=== PATIENT | male | born 1970 | race Caucasian/White ===

== ENCOUNTER 2023-12-22 17:20 | Inpatient (IN) | payer OTHER ==
[~2023-12-22] VITALS: Ht 170.2 cm; Wt 89.9 kg
[2023-12-22] VITALS (16 sets, daily range): BP systolic 118–154; BP diastolic 90–98
[2023-12-22] MEDS ORDERED: Aspirin 325 MG Tab PO ONE (17:35)
[2023-12-22] MEDS ORDERED: Heparin Sodium 5000 Units/ML 1ML MDV IV ONE (17:40)
[2023-12-22 17:41] LABS: BASOPHILS ABSOLUTE AUTO 0.04 K/mm3 (0.00-0.23); BASOPHILS PERCENT AUTO 0 % (0-2); EOSINOPHILS ABSOLUTE AUTO 0.14 K/mm3 (0.00-0.68); EOSINOPHILS PERCENT AUTO 2 % (0-6); Hematocrit 48.3 % (37.0-53.0); Hemoglobin 16.4 g/dL (13.5-17.5); IMMATURE GRAN ABSOLUTE AUTO 0.02 K/mm3 (0.00-0.10); IMMATURE GRAN PERCENT AUTO 0 % (0-1); LYMPHOCYTES ABSOLUTE AUTO 3.09 K/mm3 (0.84-5.20); LYMPHOCYTES PERCENT AUTO 33 % (21-46); MONOCYTES ABSOLUTE AUTO 0.67 K/mm3 (0.16-1.47); MONOCYTES PERCENT AUTO 7 % (4-13); Mean Corpuscular HGB 31.6 pg (26.0-34.0); Mean Corpuscular Volume 93 fL (80-100); Mean Platelet Volume 9.4 fL (9.1-12.4); NEUTROPHILS ABSOLUTE AUTO 5.54 K/mm3 (1.96-9.15); NEUTROPHILS PERCENT AUTO 58 % (41-73); Platelet Count 192 K/mm3 (150-400); RDW Coefficient Variation 13.3 % (11.7-14.2); RDW Standard Deviation 45.4 fL (35.1-46.3); Red Blood Cell Count 5.19 M/mm3 (4.30-5.90)
[2023-12-22] MEDS ORDERED: Ticagrelor 90 MG TABLET PO ONE ×2 (17:50→19:58)
[2023-12-22] MEDS ORDERED: Verapamil HCL 2.5 MG/ML 2ML Injection ONE (17:58)
[2023-12-22] MEDS ORDERED: NS 250 ML IV ONE (17:58)
[2023-12-22] MEDS ORDERED: Heparin Sodium 1000 Units/ML 10ML MDV ONE ×2 (17:58→18:01)
[2023-12-22] MEDS ORDERED: Nitroglycerin 2 MG/20 ML BTL ONE (17:58)
[2023-12-22] MEDS ORDERED: NS 1,000 ML IV ONE ×2 (17:58→18:01)
[2023-12-22 18:01] LABS: Magnesium, Blood 2.2 mg/dL (1.6-2.4)
[2023-12-22] MEDS ORDERED: FentaNYL Citrate 50 MCG/ML 2 ML Injection ONE (18:01)
[2023-12-22] MEDS ORDERED: Midazolam HCl 1MG / ML 2ML Vial ONE (18:01)
[2023-12-22 18:02] LABS: Albumin/Globulin Ratio 1.1 (0.8-1.8); Bilirubin, Total 0.6 mg/dL (0.1-1.0); Bun/Creatinine Ratio 15.2 (12.0-20.0); Calcium, Blood 8.7 mg/dL (8.5-10.1); Creatinine, Blood 0.72 mg/dL (0.60-1.20); Globulin, Blood 3.7 g/dL (2.2-4.0); Total Protein, Blood 7.7 g/dL (6.4-8.2)
[2023-12-22 18:05] LABS: Creatinine (POC) 0.8 mg/dL (0.8-1.3)
[2023-12-22] MEDS ORDERED: Acetaminophen 325 MG TABLET PO PRN (18:10)
[2023-12-22] MEDS ORDERED: Magnesium Hydroxide Conc 10 ML UDC PO PRN (18:10)
[2023-12-22] MEDS ORDERED: Tirofiban HCL Monohydrate 3.75 MG/15 ML Vial ONE (18:31)
--- NOTE | 2023-12-22 19:42 | NUR ---
ADMIT PATIENT ADMITTED FROM [facility] AFTER STENTS PLACED TO MID RCA AND MID CIRC. PATIENT A&O X4 AT BEDSIDE. TR BAND ON RIGHT RADIAL AND ARM BOARD IN PLACE. SEE ADMIT ASSESSMENT FOR FULL ASSESS.
[2023-12-22] MEDS ORDERED: AMLOATOR (19:55)
[2023-12-22] MEDS ORDERED: TAMS.4ER (19:56)
[2023-12-22] MEDS ORDERED: Heparin Sodium,Porcine 5,000 UNIT/0.5 ML SDV SC ONE (19:58)
[2023-12-22] MEDS ORDERED: Ticagrelor 90 MG TABLET PO SCH (21:00)
[2023-12-22] MEDS ORDERED: Metoprolol Tartrate 25 MG Tab PO SCH (21:00)
[2023-12-23] VITALS (14 sets, daily range): BP systolic 121–156; BP diastolic 83–114
[2023-12-23 02:01] LABS: U Amphetamine Screen Not Detected; U Barbituate Screen Not Detected; U Benzodiazapine Screen Not Detected; U Buprenorphine Screen Not Detected; U Cannabinoids Screen Not Detected; U Cocaine Screen Not Detected; U Methadone Screen Not Detected; U Methamphetamine Screen Not Detected; U Opiates Screen Not Detected; U Oxycodone Screen Not Detected; U Phencyclidine Screen Not Detected
[2023-12-23 04:08] LABS: Cholesterol 200 mg/dL (50-200); HDL Cholesterol 25 mg/dL (>39); LDL/HDL RATIO Unable to Calculate; Low Density Lipoprotein Chol Unable to Calculate mg/dL (0-110); Triglycerides 410 mg/dL (30-160); Very Low Density Lipoprot Chol Unable to Calculate mg/dL (6-32)
--- NOTE | 2023-12-23 05:40 | NUR ---
SHIFT SUMMARY PATIENT SLEPT WELL AFTER ARRIVING AT 1942. WAS AT BEDSIDE DURING INITIAL ADMISSION TO ICU FROM [facility]. TR BAND DEFLATED AND REMOVED CHECKED Q15X4, THEN Q30X2, NOW Q1HR X4. TEGADERM APPLIED TO RIGHT WRIST MID RLA AND MID CIRC. PATIENT TEMP STABLE 97.8 USING BEDSIDE URINAL, HR 60-70'S AND SBP 130-140'S. LUNGS CLEAR, PEDAL AND RADIAL PULSES STRONG. CALL LIGHT WITHIN REACH. WILL CONTINUE TO MONTIOR
[2023-12-23] MEDS ORDERED: Aspirin 325 MG Tab PO SCH (09:00)
[2023-12-23] MEDS ORDERED: AmLODIPine Besylate 5 MG Tab PO SCH (09:00)
[2023-12-23] MEDS ORDERED: Aspirin 81 MG Chew PO SCH (09:00)
[2023-12-23] MEDS ORDERED: Atorvastatin 40 MG Tab PO SCH (09:00)
[2023-12-23] MEDS ORDERED: Losartan Potassium 50 MG Tab PO SCH (09:00)
--- NOTE | 2023-12-23 11:28 | NUR ---
AM NOTE... ASSUMED CARE OF PT AT 0700, PT IS A&Ox4 AND IND IN THE ROOM. PT IS S/P STEMI WITH STENT PLACMENT. PT'S RIGHT RADIAL SITE IS STABLE WITH NO BLEEDING, SWELLING OR HEMATOMA NOTED. PT DENIES ANY CHEST PAIN/PRESSURE N/V OR SOB. PT TOOK A WALK AROUND THE UNIT 2 TIMES AND CONTINUED TO DENY ANY CHEST PAIN/PRESSURE. DR. KEYES AND DR. ORTA AT THE BEDSIDE AROUND 1115 PLANS TO D/C HOME THIS AFTERNOON. WILL CONTINUE TO MONITOR.
[2023-12-23] MEDS ORDERED: AMLO5 PO (14:40)
[2023-12-23] MEDS ORDERED: ASPI81CH PO (14:41)
[2023-12-23] MEDS ORDERED: LOSA50 PO (14:42)
[2023-12-23] MEDS ORDERED: ATOR40TA PO (14:42)
[2023-12-23] MEDS ORDERED: METO25 PO (14:43)
[2023-12-23] MEDS ORDERED: TICA90TA PO (14:44)
--- NOTE | 2023-12-23 16:33 | NUR ---
PT D/C HOME.... PT D/C HOME WITH HIS . NEW MEDICATIONS WERE FAXED TO THE PT'S PHARMACY OF CHOICE, NEW MEDICATION EDUCATION WAS PROVIDED TO THE PT AND HIS IN VERBAL AND WRITTEN FORMAT, BOTH PT AND HIS DENIED ANY QUESTIONS. PT'S IVs WERE REMOVED WNL. THE PT'S RIGHT RADIAL SITE WAS STABLE WITH NO BLEEDING OR HEMATOMA NOTED. DISCAHRGE EDUCATION ON THE RIGHT RADIAL SITE WAS PROVIDED IN WRITTEN AND VERBAL FORMAT WELL. PT DECLINED W/C ESCORT OUT OF THE BUILDING. ALL PT BELONGINGS WERE PACKED AND SENT HOME WITH THE PT.
[2023-12-23] MEDS ORDERED: Tamsulosin HCl 0.4 MG Cap PO SCH (18:00)
== END 2023-12-23 15:22 | disposition home or self-care (01) | DRG 322 ==
LOC: ER 17:20 → ICUE 17:39
PROVIDERS: Physician Assistant; ADMIT Internal Medicine
PROC: 027135Z Dilation of Coronary Artery, Two Arteries with Two Drug-eluting Intraluminal Devices, Percutaneous Approach (ICD-10-PCS; principal; 2023-12-22)
PROC: B2111ZZ Fluoroscopy of Multiple Coronary Arteries using Low Osmolar Contrast (ICD-10-PCS; 2023-12-22)
PROC: 4A023N7 Measurement of Cardiac Sampling and Pressure, Left Heart, Percutaneous Approach (ICD-10-PCS; 2023-12-22)
DX: I21.19 ST elevation (STEMI) myocardial infarction involving other coronary artery of inferior wall (principal); I10 Essential (primary) hypertension; E78.5 Hyperlipidemia, unspecified; N40.0 Benign prostatic hyperplasia without lower urinary tract symptoms; F17.210 Nicotine dependence, cigarettes, uncomplicated; R73.03 Prediabetes; Z79.899 Other long term (current) drug therapy; R73.9 Hyperglycemia, unspecified; Z71.6 Tobacco abuse counseling
CPT/HCPCS: 36415; 37252; 76937; 80053; 80061; 82565; 83690; 83735; 84484; 85025; 85347; 93005; 93010; 93306; 93454; 99152; 99153; 99285-25; A9270; C1725; C1753; C1757; C1769; C1874; C1887; C1894; C9600; C9601; C9606; J1644; J2250; J3010; J3246; J7030; J7050; Q9967